=== PATIENT | female | born 1995 | race African-American/Black ===

== ENCOUNTER 2023-12-03 18:21 | Emergency (ER) | payer BC, OTHER ==
[2023-12-03] MEDS ORDERED: Ibuprofen 200 MG TAB ONE (20:50)
== END 2023-12-03 21:29 | disposition home or self-care (01) ==
LOC: CSHERS 18:21
DX: R06.02 Shortness of breath (principal); J45.909 Unspecified asthma, uncomplicated; Z55.6 Problems related to health literacy
CPT/HCPCS: 71046; 93005